=== PATIENT | female | born 2000 | race Caucasian/White ===

== ENCOUNTER 2018-02-02 23:52 | Emergency (ER) | payer MEDICAID ==
--- NOTE | 2018-02-03 00:01 | EDM.PDOC ---
ED HPI GENERAL MEDICAL PROBLEM - General Chief Complaint: Chest Pain Stated Complaint: chest pain Time Seen by Provider: 02/02/18 23:53 Source of Information: Reports: Patient, Old Records, RN, RN Notes Reviewed History Limitations: Reports: No Limitations - History of Present Illness INITIAL COMMENTS - FREE TEXT/NARRATIVE: Patient presents the emergency room at [facility] complaining of left-sided chest pain. The patient states the chest pain began about 20 minutes prior to presentation. The patient does not have any cardiac history. The patient does not have any history of chest pain in the past. The patient states that her pain is sharp and stabbing. The patient denies any radiation of the pain. The patient states she felt a little anxious at the time the chest pain started. The anxiety has since resolved. The patient denies any shortness of breath or cough. The patient states that she was merely watching TV when the chest pain started. The patient denies any back pain. The patient denies any nausea vomiting or diarrhea. Onset: Today, Sudden Onset Date: 02/02/18 Onset Time: 23:30 Duration: Waxing/Waning Location: Reports: Chest Quality: Reports: Dull, Pressure, Sharp, Stabbing Severity: Mild Improves with: Reports: None Worsens with: Reports: None Context: Denies: Lifting, Sick Contact, Trauma Associated Symptoms: Reports: No Other Symptoms Left Chest Pain Score (Numeric/FACES): 5 - Related Data Allergies Allergy/AdvReac Type Severity Reaction Status Date / Time No Known Allergies Allergy Verified 02/02/18 23:53 Home Meds: Home Meds . [No Known Home Meds] 11/09/17 [History] Past Medical History - Past Health History Medical/Surgical History: Denies Medical/Surgical History Social & Family History - Tobacco Use Smoking Status *Q: Never Smoker - Alcohol Use Days Per Week of Alcohol Use: 0 - Recreational Drug Use Recreational Drug Use: No ED ROS GENERAL - Review of Systems Review Of Systems: See Below Constitutional: Denies: Fever, Chills, Weakness Respiratory: Denies: Shortness of Breath, Cough Cardiovascular: Reports: Chest Pain. Denies: Palpitations GI/Abdominal: Denies: Abdominal Pain, Nausea, Vomiting Skin: Reports: No Symptoms Neurological: Reports: No Symptoms. Denies: Dizziness, Headache, Numbness, Paresthesia, Tingling ED EXAM, GENERAL - Physical Exam Exam: See Below Exam Limited By: No Limitations General Appearance: Alert, No Apparent Distress Respiratory/Chest: No Respiratory Distress, Lungs Clear, Normal Breath Sounds Cardiovascular: Normal Peripheral Pulses, Regular Rate, Rhythm, No Murmur Peripheral Pulses: 2+: Radial (L), Radial (R) GI/Abdominal: Normal Bowel Sounds, Soft, Non-Tender Neurological: Alert, Oriented Skin Exam: Warm, Dry, Intact, Normal Color EKG INTERPRETATION EKG Date: 02/02/18 Time: 23:50 Rhythm: NSR Rate (Beats/Min): 101 [place]: Normal P-Wave: Present QRS: Normal ST-T: Normal QT: Normal [place]/PQ Interval: 0.14 Comparison: NA - No Prior EKG EKG Interpretation Comments: 1. Sinus Tachycardia 2. Minimal voltage criteria for LVH, consider normal variant 3. Nonspecific T-wave abnormality Course - Vital Signs Last Recorded V/S: Last Vital Signs Temp 36.9 C 02/02/18 23:53 Pulse 103 H 02/02/18 23:53 Resp 18 02/02/18 23:53 BP 101/67 02/02/18 23:53 Pulse Ox 98 02/02/18 23:53 - Orders/Labs/Meds Orders: Active Orders 24 hr Category Date Time Status EKG 12 Lead [EKG Documentation Completion] [RC] STAT Care 02/03/18 00:00 Active Chest 2V [CR] Stat Exams 02/02/18 23:53 Taken Magnesium Chloride [Mag-64] Med 02/03/18 00:56 Once 64 mg PO ONETIME ONE Labs: Laboratory Tests 02/03/18 02/03/18 Range/Units 00:24 00:24 WBC 10.7 H (4.0-10.0) x10^3/uL RBC 4.67 (4.00-5.50) x10^6/uL Hgb 13.4 (12.0-16.0) g/dL Hct 40.9 (33.0-47.0) % MCV 87.6 (78.0-93.0) fL MCH 28.7 (26.0-32.0) pg MCHC 32.8 (32.0-36.0) g/dL RDW Coeff of Jose Antonio 13.5 (10.0-15.0) % Plt Count 341 (130-400) x10^3/uL Neut % (Auto) 64.1 (50.0-80.0) % Lymph % (Auto) 27.6 (25.0-50.0) % [place] % (Auto) 6.2 (2.0-11.0) % Eos % (Auto) 1.8 (0.0-4.0) % Baso % (Auto) 0.3 (0.2-1.2) % Sodium 139 (136-145) mmol/L Potassium 3.9 (3.5-5.1) mmol/L Chloride 104 (98-107) mmol/L Carbon Dioxide 27 (21-32) mmol/L BUN 16 (7-18) mg/dL Creatinine 0.7 (0.55-1.02) mg/dL Est Cr Clr Drug Dosing TNP Estimated GFR (MDRD) > 60 Glucose 102 (74-106) mg/dL Calcium 9.0 (8.5-10.1) mg/dL Magnesium 1.7 L (1.8-2.4) mg/dL Creatine Kinase 50 (26-192) U/L Troponin I < 0.017 (<=0.056) ng/mL - Radiology Interpretation Free Text/Narrative:: CXR: Normal chest xray - see scanned report in EMR Departure - Departure Time of Disposition: 00:57 Disposition: Home, Self-Care 01 Reason for Transfer *Q: Other Condition: Good Clinical Impression: Atypical chest pain, Non-cardiac chest pain Instructions: Nonspecific Chest Pain Referrals: Adin Mills MD [ED Physician] - Forms: ED Department Discharge Additional Instructions: 1. Stay well hydrated and rest 2. Blood work and chest xray were normal, no heart involvement 3. May alternate Tylenol/Advil as needed for pain 4. Follow up with Primary care as symptoms warrant 5. Call with any question/concerns - Problem List Review Problem List Initiated/Reviewed/Updated: Yes - My Orders Last 24 Hours: My Active Orders 02/02/18 23:53 Chest 2V [CR] Stat 02/03/18 00:00 EKG 12 Lead [EKG Documentation Completion] [RC] STAT 02/03/18 00:56 Magnesium Chloride [Mag-64] 64 mg PO ONETIME ONE - Assessment/Plan Last 24 Hours: My Active Orders 02/02/18 23:53 Chest 2V [CR] Stat 02/03/18 00:00 EKG 12 Lead [EKG Documentation Completion] [RC] STAT 02/03/18 00:56 Magnesium Chloride [Mag-64] 64 mg PO ONETIME ONE Assessment:: Atypical chest pain Non-cardiac chest pain Plan: Labs and xray discussed with patient. No cardiac etiology found. Will supplement Magnesium PO. Recommend follow up with PCP as symptoms warrant
[2018-02-03 00:53] LABS: CHLORIDE,CL 104 mmol/L (98-107); SODIUM,NA 139 mmol/L (136-145)
[2018-02-03] MEDS: Magnesium Chloride 64 MG Tab.ER PO ONE (01:03)
== END 2018-02-03 01:03 | disposition home or self-care (01) ==
LOC: VM.ED 23:52
DX: R07.89 Other chest pain (principal)
CPT/HCPCS: 36415; 71046; 80048; 82550; 83735; 84484; 85025; 99285; A9270-GY

== ENCOUNTER 2024-03-24 02:20 | Emergency (ER) | payer MEDICAID | END 2024-03-24 03:23 | disposition home or self-care (01) | LOC: VM.ED 02:20 | DX: S41.112A Laceration without foreign body of left upper arm, initial encounter (principal); S41.111A Laceration without foreign body of right upper arm, initial encounter; F32.A Depression, unspecified; W26.0XXA Contact with knife, initial encounter | CPT/HCPCS: 99283; 99284 ==

== ENCOUNTER 2024-03-30 01:30 | Emergency (ER) | payer MEDICAID ==
[2024-03-30 04:12] LABS: BASOPHILS PERCENT AUTO 0.5 % (0.2-1.2); EOSINOPHILS ABSOLUTE AUTO 0.2 x10^3/uL (0.0-0.5); EOSINOPHILS PERCENT AUTO 2.2 % (0.0-4.0); HEMATOCRIT 41.6 % (33.0-47.0); HEMOGLOBIN 14.2 g/dL (12.0-16.0); IMMATURE GRAN ABSOLUTE AUTO 0.01 x10^3/uL (0.00-0.07); LYMPHOCYTES ABSOLUTE AUTO 3.1 x10^3/uL (1.0-4.8); MEAN CORPUSCULAR HGB CONC 34.1 g/dL (32.0-36.0); MEAN CORPUSCULAR VOLUME 87.9 fL (78.0-93.0); MONOCYTES ABSOLUTE AUTO 0.4 x10^3/uL (0.0-0.8); NEUTROPHILS PERCENT AUTO 52.2 % (50.0-80.0); PLATELET COUNT,PLT 294 x10^3/uL (130-400); RED BLOOD CELL COUNT 4.73 x10^6/uL (4.00-5.50); WHITE BLOOD CELL COUNT,WBC 7.7 x10^3/uL (4.0-10.0)
[2024-03-30 04:23] LABS: AMPHETAMINES SCREEN, URINE NEGATIVE (NEGATIVE); BARBITURATE SCREEN,URINE NEGATIVE (NEGATIVE); BENZODIAZEPINES SCREEN,URINE NEGATIVE (NEGATIVE); BUPRENORPHINE SCREEN,URINE NEGATIVE (NEGATIVE); COCAINE METABOLITES,URINE NEGATIVE (NEGATIVE); METHADONE SCREEN, URINE NEGATIVE (NEGATIVE); METHAMPHETAMINE SCREEN, URINE NEGATIVE (NEGATIVE); OXYCODONE SCREEN,URINE NEGATIVE (NEGATIVE); PCP SCREEN,URINE NEGATIVE (NEGATIVE); THC SCREEN,URINE 50 NG/ML NEGATIVE (NEGATIVE)
[2024-03-30 04:30] LABS: A/G RATIO 0.69; ALANINE AMINOTRANSFERASE,ALT 46 U/L (14-59); ALBUMIN 3.4 g/dL (3.4-5.0); ALKALINE PHOSPHATASE 100 U/L (46-116); ASPARTATE AMNIOTRANSFERASE,AST 27 U/L (15-37); BILIRUBIN TOTAL 0.4 mg/dL (0.2-1.0); BLOOD UREA NITROGEN,BUN 6 mg/dL (7-18); CALCIUM 8.9 mg/dL (8.5-10.1); CARBON DIOXIDE,CO2 23 mmol/L (21-32); CHLORIDE,CL 103 mmol/L (98-107); CREATININE 0.6 mg/dL (0.55-1.02); GLUCOSE RANDOM 119 mg/dL (70-99); POTASSIUM,K 3.4 mmol/L (3.5-5.1); PROTEIN TOTAL,TP 8.3 g/dL (6.4-8.2); SODIUM,NA 142 mmol/L (136-145)
[2024-03-30 04:31] LABS: ACETAMINOPHEN 0 ug/ml (10-30); ANION GAP 19.4 mmol/L (5-15); ESTIMATED GFR 128 mL/min (>=60)
== END 2024-03-30 04:58 | disposition other institution (70) ==
LOC: VM.ED 01:30
DX: S51.812A Laceration without foreign body of left forearm, initial encounter (principal); S21.119A Laceration without foreign body of unspecified front wall of thorax without penetration into thoracic cavity, initial encounter; F41.9 Anxiety disorder, unspecified; X78.9XXA Intentional self-harm by unspecified sharp object, initial encounter
CPT/HCPCS: 36415; 80053; 80143; 80179; 80305-QW; 80307; 81025; 85025; 99284

== ENCOUNTER 2024-04-22 12:20 | Emergency (ER) | payer MEDICAID | END 2024-04-22 14:25 | disposition home or self-care (01) | LOC: VM.ED 12:20 | DX: S93.402A Sprain of unspecified ligament of left ankle, initial encounter (principal); X50.1XXA Overexertion from prolonged static or awkward postures, initial encounter; Y93.E1 Activity, personal bathing and showering | CPT/HCPCS: 73610-LT; 73630-LT; 99283 ==

== ENCOUNTER 2024-05-04 14:53 | Emergency (ER) | payer MEDICAID | END 2024-05-04 15:38 | disposition home or self-care (01) | LOC: VM.ED 14:53 | DX: S60.221A Contusion of right hand, initial encounter (principal); Y04.8XXA Assault by other bodily force, initial encounter | CPT/HCPCS: 73130-RT; 99283 ==

== ENCOUNTER 2024-05-12 00:08 | Emergency (ER) | payer MEDICAID | END 2024-05-12 01:17 | disposition home or self-care (01) | LOC: VM.ED 00:08 | DX: S50.812A Abrasion of left forearm, initial encounter (principal); F41.9 Anxiety disorder, unspecified; W26.8XXA Contact with other sharp object(s), not elsewhere classified, initial encounter | CPT/HCPCS: 99283 ==

== ENCOUNTER 2024-05-23 01:17 | Emergency (ER) | payer MEDICAID | END 2024-05-23 02:20 | disposition home or self-care (01) | LOC: VM.ED 01:17 | DX: F32.A Depression, unspecified (principal); R45.851 Suicidal ideations | CPT/HCPCS: 99284 ==

== ENCOUNTER 2024-05-25 00:42 | Emergency (ER) | payer MEDICAID ==
[2024-05-25] MEDS: Lactated Ringers 1,000 ML IV ONE (01:00)
[2024-05-25] MEDS: Ondansetron 4 MG/2 ML SDV IVPUSH ONE (01:30)
== END 2024-05-25 02:15 | disposition home or self-care (01) ==
LOC: VM.ED 00:42
DX: F10.10 Alcohol abuse, uncomplicated (principal); R11.2 Nausea with vomiting, unspecified; Y90.9 Presence of alcohol in blood, level not specified
CPT/HCPCS: 96361; 96374; 99284-25; J2405; J7120